=== PATIENT | male | born 1990 | race Asian ===

== ENCOUNTER 2016-06-26 21:37 | Emergency (ER) | payer OTHER ==
[~2016-06-26] VITALS: Ht 170.2 cm; Wt 81.8 kg
[2016-06-26 22:05] VITALS: BP 97/60; PULSE 101; RESP 18; O2SAT 97
--- NOTE | 2016-06-26 23:04 | ED.REPORT ---
HPI-General Illness Date of Service Jun 26, 2016 ED Provider: Dr. Leon Pt is a 26 year old male presenting to the ED complaining of flu like symptoms onset yesterday. Associated symptoms include body aches, vomiting and fever. Denies diarrhea or other symptoms at this time. Nursing Notes Stated Complaint: VOMITING Chief Complaint: FLU/Cold Symptoms Nursing Notes Reviewed: Yes Allergies: Coded Allergies: erythromycin base (Verified Allergy, Intermediate, GETS ILL, 06/26/16) General Time Seen by MD: 23:04 Chief Complaint Fever Hx Obtained From: Patient Arrived By: Walk-in Sudden in Onset?: Yes Onset Occurred: Yesterday Symptom Duration: Since onset Severity: Current: No pain currently Severity: Maximum: No pain Recent Healthcare: No recent doctor visit, No recent hospitalization Similar Sx Previous: No Past Medical History Past Medical History denies Past Surgical History denies Ambulatory Status Independent Review of Systems Full Review of Systems Constitutional: Reports: Fever GI: Reports: Nausea, Vomiting, Denies: Diarrhea Musculoskeletal: Reports: Extremity pain Complete sys rev & neg: except as marked. Physical Exam Vital Signs Vital Signs Date Time Temp Pulse Resp B/P Pulse Ox O2 Delivery O2 Flow Rate FiO2 06/27/16 02:12 37.9 107 20 98/56 98 Room Air 06/26/16 22:05 39.4 101 18 97/60 97 Room Air Initial VS: Reviewed General/Constitutional: Well-developed, Well-nourished Head / Eyes: Atraumatic, Normocephalic, PERRL ENT: Mucous membranes moist, Conjunctiva normal, No scleral icterus Respiratory: Breath sounds normal, Clear to auscultation, No respiratory distress Abdomen / GI: Soft, Non-tender, No guarding, No rebound, No distention Extremities: Vascular intact, Neuro intact, No swelling, No tenderness Skin: Warm, Dry, No cyanosis Neurologic: Alert, Oriented, Nonfocal Psychiatric: Mood/affect normal, Behavior normal, Normal thought content Cardiovascular: No gallop, No murmurs, No rubs Tachycardic with thready pulses Interpretation & Diagnostics Interpretation & Diagnostics: Positive influenza A Lab Results Interpretation Result Diagram: 06/26/16 2325 06/26/16 2325 Test 06/26/16 23:25 White Blood Count 6.6th/mm3 (3.8-10.1) Red Blood Count 4.74mil/mm3 (4.40-5.80) Hemoglobin 13.8g/dL (13.8-17.2) Hematocrit 40.3% (41.0-50.0) Mean Corpuscular Volume 85.0fL (81-100) Mean Corpuscular Hemoglobin 29.1pg (27.0-35.0) Mean Corpuscular Hemoglobin Concent 34.2% (32.0-37.0) Red Cell Distribution Width 12.8% (12.3-15.4) Platelet Count 119bil/L (150-400) Neutrophils (%) (Auto) 55.9% (40-74) Lymphocytes (%) (Auto) 20.7% (14-46) Monocytes (%) (Auto) 22.9% (4-12) Eosinophils (%) (Auto) 0% (0-5) Basophils (%) (Auto) 0.3% (0-3) Sodium Level 135mEq/L (134-144) Potassium Level 3.8mEq/L (3.5-5.2) Chloride Level 95mEq/L (97-108) Carbon Dioxide Level 24mmol/L (18-29) Blood Urea Nitrogen 13mg/dL (6-20) Creatinine 1.15mg/dL (0.76-1.27) Estimat Glomerular Filtration Rate 82mL/min (>59) Glucose Level 104mg/dL (60-99) Calcium Level 9.0mg/dL (8.5-10.1) Total Bilirubin 0.4mg/dL (0.0-1.2) Aspartate Amino Transf (AST/SGOT) 24U/L (0-50) Alanine Aminotransferase (ALT/SGPT) 14U/L (0-44) Alkaline Phosphatase 55U/L (25-150) Total Protein 7.3g/dL (6.4-8.4) Albumin 4.5g/dL (3.4-5.0) Hold Colunga Top Tube Received (Received) Re-Eval/Medical Decision Med Decision/Clinical Course Healthy 26-year-old male presents with fever chills and vomiting. He is found to have mild hypotension and mild tachycardia. He was diagnosed with influenza A via nasal swabs. Laboratory work is otherwise reassuring. He is hydrated with 2 L of saline. IV Toradol and Tylenol were given. He looked and felt much better. His vital signs normalize. He had no indicators of sepsis. He will be on antivirals. Close outpatient follow-up recommended. Time of Eval: 01:36 Patient Status: Condition improved Re-Evaluation/Progress Note: Discussed plan for discharge. Pt understands and agrees with plan. Counseled Regarding: Diagnosis, Lab results, Need for follow-up, When/why to return to ED Discharge & Departure Primary Impression: Influenza Disposition: Home Discharge Condition All VS Reviewed: Yes Condition: Improved Additional Instructions: Tamiflu twice daily for 5 days. Tylenol or Motrin as directed for fever and body aches. Drink plenty of liquids. Do not return to work until symptoms have abated. Do not drive tonight as you received sedating medications. Return if any problems or any worsening symptoms. Have family members vaccinated or consider prophylaxis. Return if any problems or any worsening symptoms. Follow up next week with your primary care physician or with the referral physician given. Call Tuesday to set this up. Referrals: [facility] (PCP) [facility] Abena Attestation Portions of this note were transcribed by Angelita Rutherford. I, Dr. Leon personally performed the history, physical exam and medical decision-making; I reviewed and confirmed the accuracy of the information in the transcribed note. Signed by : Abena Vital, 06/26/2016 and 0137. copies to: [facility] James Leon DO Jun 26, 2016 23:04 ANGELITA RUTHERFORD Jun 26, 2016 23:05
[2016-06-26] MEDS ORDERED: 0.9% Sodium Chloride 1,000 ML IV SCH (23:05)
[2016-06-26] MEDS ORDERED: Ondansetron 2 mg/mL 2 mL Inj IVPUSH PRN (23:05)
[2016-06-26 23:39] LABS: BASOPHILS % (AUTO) 0.3 % (0-3); EOSINOPHILS % (AUTO) 0 % (0-5); MONOCYTES % (AUTO) 22.9 % (4-12); Mean Corpuscular Hemoglobin 29.1 pg (27.0-35.0); NEUTROPHILS % (AUTO) 55.9 % (40-74); Platelet Count 119 bil/L (150-400)
[2016-06-27 02:12] VITALS: BP 98/56; PULSE 107; RESP 20; O2SAT 98
== END 2016-06-27 01:35 | disposition home or self-care (01) ==
LOC: SED 21:37
DX: J11.89 Influenza due to unidentified influenza virus with other manifestations (principal); R11.10 Vomiting, unspecified; Z88.1 Allergy status to other antibiotic agents
CPT/HCPCS: 36415; 80053; 85025; 87804; 96361; 96374; 96375; 99284; J2405; J7030

== ENCOUNTER 2016-11-28 23:13 | Emergency (ER) | payer OTHER ==
[~2016-11-28] VITALS: Ht 167.6 cm; Wt 81.8 kg
[2016-11-29 00:06] VITALS: BP 127/83; PULSE 88; RESP 16; O2SAT 100
--- NOTE | 2016-11-29 00:50 | ED.REPORT ---
HPI-Extremity Problem Lower Date of Service Nov 29, 2016 ED Provider: Doc,Ed MD Nursing Notes Stated Complaint: R KNEE INFECTION Chief Complaint: Extremity Trauma Allergies: Coded Allergies: erythromycin base (Verified Allergy, Intermediate, GETS ILL, 06/26/16) General Time Seen by MD: 00:49 Past Medical History Past Medical History denies Past Surgical History denies Smoking History Never Smoker Ambulatory Status Independent Physical Exam Initial Vital Signs Vital Signs (First) Date Time Temp Pulse Resp B/P Pulse Ox O2 Delivery O2 Flow Rate FiO2 11/29/16 00:06 36.8 88 16 127/83 100 Room Air Discharge & Departure Referrals: NOPCP (PCP) James Leon DO Nov 29, 2016 00:49
== END 2016-11-29 01:02 | disposition left against medical advice (07) ==
LOC: SED 23:13
DX: M25.561 Pain in right knee (principal); Z53.21 Procedure and treatment not carried out due to patient leaving prior to being seen by health care provider